=== PATIENT | male | born 1985 | race Caucasian/White ===

== ENCOUNTER 2016-10-06 21:24 | Emergency (ER) | payer OTHER ==
[2016-10-06] MEDS ORDERED: PROMETHAZINE HCL 25 MG in DEXTROSE 5 % IN WATER 50 ML IV ONE ×2 (21:47)
[2016-10-06] MEDS ORDERED: diphenhydrAMINE HCL 50 MG/ML VIAL IV ONE (21:47)
[2016-10-06] MEDS ORDERED: KETOROLAC TROMETHAMINE 30 MG/ML VIAL IV ONE (21:47)
[2016-10-06] MEDS ORDERED: KETOROLAC TROMETHAMINE 30 MG/ML VIAL ONE (21:53)
--- NOTE | 2016-10-06 21:57 | ERNOTE ---
<Radha Camarena - Last Filed: 10/06/16 21:47> Neuro HPI ER Record Date of Service: 10/06/16 Presenting Symptoms: other - seizure Time Seen by Provider: 10/06/16 21:40 Source: patient Exam Limitations: no limitations Immunizations: IMMUNIZATION HX Immunizations Up to Date Yes Allergies/Adverse Reactions: Allergies Allergy/AdvReac Type Severity Reaction Status Date / Time Sulfa (Sulfonamide Allergy Verified 10/06/16 21:35 Antibiotics) Home Medications: HOME MEDICATIONS levETIRAcetam [Keppra] 500 mg PO BID #60 tablet 10/06/16 [Last Taken Unknown] - History of Present Illness Narrative: Pt. comes in with c/o two seizures hours apart, pt. states unknown time period. Pt. has a hx of seizures and denies using his medications for years because he "cannot afford it" Pt. states that he has a headache but denies any vision changes, SOB, CP, NVD, fever, recent illness or injury, Pt. denies any injury of falling but states that he is weak after the last seizure. After the first seizure occurred at work today he went home and had a seizure at home and then was brought to the ER. Review of Systems - Review of Systems Constitutional: Present: weakness, fatigue. Absent: recent illness, fever, chills, malaise EYE: Present: no symptoms reported ENT: Present: no symptoms reported Respiratory: Present: no symptoms reported. Absent: shortness of breath, cough , wheezing Cardiology: Present: no symptoms reported. Absent: chest pain, palpitations, edema Gastrointestinal/Abdominal: Present: no symptoms reported. Absent: nausea, vomiting, diarrhea Genitourinary: Present: no symptoms reported Musculoskeletal: Present: no symptoms reported. Absent: back pain, joint pain Skin: Present: no symptoms reported. Absent: rash, change in hair/nails Neurological: Present: no symptoms reported. Absent: headache, dizziness/light- headedness, numbness, tingling All Other Systems: All systems neg except as marked - Patient's Past Medical History Patient History - Medical: Seizures Patient History - Cardiac/Respiratory: No pertinent hx Patient History - Cancer: No Hx of Cancer Patient History - Surgical Procedures: No surgical history - Social History Living Situations: home Smoking Status: Current every day smoker Patient requests Smoking Cessation Consult: No Initiate information on Smoking Cessation: No Alcohol Use: none Drug Use: none - Immunizations Immunizations Up to Date: Yes Physical Exam - Physical Exam General Appearance: Present: wd/wn, alert, no apparent distress Eye Exam: Normal inspection: bilateral, PERRL: bilateral, EOMI: bilateral Ears, Nose, Throat: Present: normal ENT inspection, normal pharynx Neck: Present: normal inspection, nontender. Absent: lymphadenopathy (R), lymphadenopathy (L) Respiratory: Present: no respiratory distress, normal breath sounds, no accessory muscle use, chest nontender, lungs clear. 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 Absent: pallor, skin rash Bowdon Coma Scale - Assess Eye Opening: Spontaneous Motor: Obeys Commands Verbal: Oriented - Total Coma Scale Total: 15 ED Progress - Vital Signs Patient's Vital Signs:: I have reviewed the patient's vital signs. Vital Signs: Vital Signs 10/06/16 10/06/16 21:28 21:30 Temperature 36.9 C Pulse Rate 68 78 Respiratory 16 Rate Blood Pressure 116/78 O2 Sat by Pulse 98 Oximetry - Progress/Reassessment Chief Complaint: Seizure Activity - Transfer of Care Physician Sign Out: Radha Camarena Receiving Physician: Minnie Thomas Pending Results: Labs Expected Disposition: Discharge Departure Clinical Impression: Seizure disorder - Departure Disposition: Home self-care Condition: Good Instructions: Seizure, Adult, [id number] Additional Instructions: call the neurology office for follow up Referrals: Calderon Weaver MD [Consulting Physician] - Prescriptions: levETIRAcetam [Keppra] 500 mg PO BID #60 tablet <Minnie Thomas - Last Filed: 10/06/16 23:14> Neuro HPI ER Record Immunizations: IMMUNIZATION HX Immunizations Up to Date Yes ED Progress - Results and Orders Patient's Lab Results:: I have reviewed the patient's lab results. - Vital Signs Patient's Vital Signs:: I have reviewed the patient's vital signs. Vital Signs: Vital Signs 10/06/16 10/06/16 10/06/16 21:28 21:30 21:58 Temperature 36.9 C Pulse Rate 68 78 68 Respiratory 16 14 Rate Blood Pressure 116/78 127/73 O2 Sat by Pulse 98 95 Oximetry 10/06/16 10/06/16 22:17 22:50 Temperature 36.7 C Pulse Rate 64 65 Respiratory 15 13 Rate Blood Pressure 134/83 127/77 O2 Sat by Pulse 95 93 Oximetry - Progress/Reassessment Progress Note-Subjective: 10/06/16 23:12 Patient comfortable, no seizures, patient was off medications as he could not afford them printed out coupon for romeo , gave follow up information for neurology
--- OUTSIDE RECORDS SUMMARY | 2016-10-06 22:02 | XMS REPORT | CCD ---
:1985 Author Name MAURICIO BOB Floridalma Address [address] Unavailable [place], [place] [id number] Care Team Providers Name Role Phone EFE MATA Attending Physician Unavailable EFE MATA Er Physician 1 Unavailable Vital Signs Vital Sign Value Unit Weight Measured 165 lbs Height 72 in BMI (Body Mass Index) 22.38 kg/m^2 BSA (Body Surface Area) 1.95 m^2 Allergies Allergy Code Allergy Type Reaction Status SULFA (sulfonamide) 0 Drug allergy (disorder) Active Procedures Unknown. History of Immunizations Unknown. Problems Unknown. Results RAPID URINE DRUG SCREEN Test Name Code Test Result Test Units Test Date/Time CANNABINOIDS (THC) NEGATIVE N/A 08/06/2013 22:10 OPIATES NEGATIVE N/A 08/06/2013 22:10 AMPHETAMINES NEGATIVE N/A 08/06/2013 22:10 COCAINE NEGATIVE N/A 08/06/2013 22:10 TRICYCLIC ANTIDEPRES NEGATIVE N/A 08/06/2013 22:10 BARBITURATES NEGATIVE N/A 08/06/2013 22:10 METHADONE NEGATIVE N/A 08/06/2013 22:10 BENZODIAZEPINES NEGATIVE N/A 08/06/2013 22:10 PROPOXYPHENE NEGATIVE N/A 08/06/2013 22:10 METHAMPHETAMINE NEGATIVE N/A 08/06/2013 22:10 Medications Unknown. Medications Administered Unknown. Encounters Encounter Diagnosis Diagnosis Code Start Date HYPERVENTILATION 51717 08/06/2013 Social History Smoking Status Code Start Date End Date Current every day smoker [id number] Patient Decision Aids Unknown. Instructions You were admitted to [facility] on 08/06/2013 with a principle diagnosis of HYPERVENTILATION. You were discharged from [facility] on 08/06/2013. Should you have any questions prior to discharge, please contact a member of your healthcare team. If you have left the hospital and have any questions, please contact your primary care physician. Chief Complaint and Reason For Visit Chief Complaint Date of Onset ALLERGIC REACTION Function Status Unknown. Plan of Care Unknown. Referral/Transition of Care Unknown.
--- OUTSIDE RECORDS SUMMARY | 2016-10-06 22:02 | XMS REPORT | CCD ---
:1985 Author Name ZULLY CALDERON Address [address] Unavailable [place], [place] [id number] Care Team Providers Name Role Phone RED PADILLA Attending Physician Unavailable Vital Signs Unknown or Not Available. Allergies Allergy Code Allergy Type Reaction Status SULFA (sulfonamide) 0 Drug allergy Active Procedures Procedure Code Procedure Type Date TSH 66209962 SNOMED CT 10/13/2015 LIPID [address]EL [id number] SNOMED [address] 10/13/2015 History of Immunizations Unknown or Not Available. Problems Unknown or Not Available. Results GLUCOSE, SERUM OR PLASMA - Collect Date/Time: 10/13/2015 13:51 Test Name Code Test Result Test Units Test Ref Range GLUCOSE 81 mg/dL L=74 H=106 LIPID PANEL - Collect Date/Time: 10/13/2015 13:51 Test Name Code Test Result Test Units Test Ref Range CHOLESTEROL 2093-3 183 mg/dL L=0 H=200 TRIGLYCERIDES 2571-8 102 mg/dL L=0 H=200 HDL 2085-9 39 mg/dL L=40 H=60 LDL 2089-1 124 mg/dL L=0 H=160 CHOL/HDL 9830-1 4.7 L=0.0 H=6.7 TSH - Collect Date/Time: 10/13/2015 13:51 Test Name Code Test Result Test Units Test Ref Range TSH 3016-3 1.531 uIU/ml L=0.360 H=3.740 Active Medications Unknown or Not Available. Medications Administered During Visit Unknown or Not Available. Encounters Encounter Diagnosis Diagnosis Code Start Date Adult health examination [id number] 10/13/2015 Social History Smoking Status Code Start Date End Date Current every day smoker [id number] 04/18/2003 Patient Decision Aids Unknown or Not Available. Discharge Instructions You were admitted to [facility] on 10/13/2015 13:44 with a principal diagnosis of Encounter for general adult medical examination without abnormal findings You had the following tests done:GLUCOSE, SERUM OR PLASMALIPID PANELTSH You were discharged from [facility] on 10/13/2015 13:44 Should you have any questions prior to discharge, please contact a member of your healthcare team. If you have left the hospital and have any questions, please contact your primary care physician. Chief Complaint and Reason For Visit Unknown or Not Available. Function Status Unknown or Not Available. Plan of Care Unknown or Not Available. Referral/Transition of Care Unknown or Not Available.
[2016-10-06] MEDS ORDERED: diphenhydrAMINE HCL 50 MG/ML VIAL ONE (22:09)
[2016-10-06 22:15] LABS: Hematocrit 39.3 % (42.0-52.0); Hemoglobin 13.1 gm/dL (13.5-18.0); Mean Corpuscular Hemoglobin 30.3 pg (27-31); Mean Corpuscular Hgb Conc 33.3 g/dl (32-36); Mean Platelet Volume 9.7 fl (6.0-9.5); Neutrophil # 2.6 K/mm3 (1.3-6.0); Neutrophil % 39.5 % (42-75.0); Platelet Count 233 K/mm3 (150-450); Red Blood Count 4.32 M/mm3 (4.7-6.0); Red Cell Distribution Width 12.2 % (11.5-14.0); White Blood Count 6.5 K/mm3 (4.0-10.5)
[2016-10-06 22:20] LABS: Urine Bilirubin Negative (NEGATIVE); Urine Ketone Negative (NEGATIVE); Urine Nitrite Negative (NEGATIVE); Urine Protein Negative (NEGATIVE); Urine Specific Gravity 1.025 SP.GR. (1.005-1.030); Urine Urobilinogen Normal (NORMAL)
[2016-10-06 22:29] LABS: ALT 18 U/L (19-67); AST 14 U/L (0-48); Albumin * 3.9 gm/dl (3.4-5.0); Alkaline Phosphatase * 85 U/L (50-170); BUN/Creatinine Ratio 8.7 (9.0-21.6); Bilirubin, Total 0.2 mg/dL (0.0-1.1); Blood Urea Nitrogen 9 mg/dL (6-23); Ca. Corrected For Albumin 8.7 mg/dL (8.4-10.2); Calcium * 8.9 mg/dL (7.9-10.9); Chloride 105 mmol/L (97-106); Glucose * 91 mg/dL (70-110); Potassium 3.9 mmol/L (3.4-4.6); Sodium 141 mmol/L (132-142)
[2016-10-06 22:33] LABS: Cocaine Ur Negative (NEGATIVE); Urine Barbiturate Negative (NEGATIVE); Urine Benzodiazepines Negative (NEGATIVE); Urine Opiates Negative (NEGATIVE); Urine PCP Negative (NEGATIVE); Urine THC Negative (NEGATIVE)
[2016-10-06 22:34] LABS: Urine Appearance Clear; Urine Bacteria 1+; Urine Blood 5 /ul (NEGATIVE); Urine Color Yellow; Urine RBC 0-5 /hpf (0-5); Urine WBC 0-5 /hpf (0-5)
[2016-10-06 22:35] LABS: Urine Mucus Few - 1+; Urine Sperm TRACE
[2016-10-06 22:37] LABS: Anion Gap 11.3 mmol/L (6.8-13.8); Carbon Dioxide 28.6 mmol/L (24-32.6)
[2016-10-07 00:26] VITALS: BP 112/73
== END 2016-10-06 23:32 | disposition home or self-care (01) ==
LOC: ER 21:24
DX: R56.9 Unspecified convulsions (principal); F17.210 Nicotine dependence, cigarettes, uncomplicated
CPT/HCPCS: 36415; 80053; 80307; 81001; 85025; 96374; 96375; 99284; G0481

== ENCOUNTER 2016-12-13 21:41 | Emergency (ER) | payer OTHER ==
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
[2016-12-13 22:35] LABS: Urine Bilirubin Negative (NEGATIVE); Urine Ketone Negative (NEGATIVE); Urine Nitrite Negative (NEGATIVE); Urine Protein Negative (NEGATIVE); Urine Specific Gravity <=1.005 SP.GR. (1.005-1.030); Urine Urobilinogen Normal (NORMAL); Urine pH 6.5 pH (5.0-7.0)
[2016-12-13 22:46] LABS: Urine Appearance Clear; Urine Bacteria TRACE; Urine Blood 5 /ul (NEGATIVE); Urine Color Yellow; Urine RBC None Seen /hpf (0-5); Urine WBC None Seen /hpf (0-5)
[2016-12-13 22:48] LABS: Cocaine Ur Negative (NEGATIVE); Urine Barbiturate Negative (NEGATIVE); Urine Benzodiazepines Negative (NEGATIVE); Urine Opiates Negative (NEGATIVE); Urine PCP Negative (NEGATIVE); Urine THC Negative (NEGATIVE)
[2016-12-13] MEDS ORDERED: LORazepam 2 MG/ML DISP.SYRIN IM ONE (22:53)
[2016-12-13 23:03] LABS: Hematocrit 46.3 % (42.0-52.0); Mean Cell Volume 87.9 fl (78-100); Mean Corpuscular Hemoglobin 30.4 pg (27-31); Mean Corpuscular Hgb Conc 34.6 g/dl (32-36); Neutrophil # 2.5 K/mm3 (1.3-6.0); Neutrophil % 40.6 % (42-75.0); Platelet Count 243 K/mm3 (150-450); Red Blood Count 5.27 M/mm3 (4.7-6.0); White Blood Count 6.1 K/mm3 (4.0-10.5)
[2016-12-13] MEDS ORDERED: LORazepam 2 MG/ML DISP.SYRIN ONE (23:04)
[2016-12-13 23:19] LABS: ALT 15 U/L (19-67); AST 15 U/L (0-48); Albumin * 4.8 gm/dl (3.4-5.0); Alkaline Phosphatase * 94 U/L (50-170); Anion Gap 15.9 mmol/L (6.8-13.8); BUN/Creatinine Ratio 6.6 (9.0-21.6); Bilirubin, Total 0.4 mg/dL (0.0-1.1); Blood Urea Nitrogen 6 mg/dL (6-23); Ca. Corrected For Albumin 7.9 mg/dL (8.4-10.2); Calcium * 8.9 mg/dL (7.9-10.9); Carbon Dioxide 26.7 mmol/L (24-32.6); Chloride 105 mmol/L (97-106); Glucose * 80 mg/dL (70-110); Potassium 3.6 mmol/L (3.4-4.6); Salicylate 3.7 mg/dL (2.8-20.0); Sodium 144 mmol/L (132-142); TSH * 4.742 uIU/mL (0.358-3.74); Total Protein 8.2 gm/dL (6.2-8.2)
[2016-12-13] MEDS ORDERED: NICOTINE 21 MG PATC TD ONE (23:20)
[2016-12-13] MEDS ORDERED: NICOTINE 21 MG PATC TD SCH (23:30)
[2016-12-14] MEDS ORDERED: ZIPRASIDONE MESYLATE 20 MG VIAL IM ONE (00:11)
[2016-12-14 09:10] VITALS: BP 123/70
[2016-12-14] MEDS ORDERED: LORazepam 1 MG TABLET PO ONE (10:46)
[2016-12-14] MEDS ORDERED: LORazepam 1 MG TABLET ONE (10:47)
[2016-12-14] MEDS ORDERED: lamoTRIgine 100 MG TABLET PO SCH (12:45)
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
--- NOTE | 2016-12-14 13:05 | CONS ---
HPI - History of Present Illness Allergies/Adverse Reactions: Allergies Sulfa (Sulfonamide Antibiotics) Allergy (Verified 10/06/16 21:35) - Patient's Past Medical History Patient History - Medical: Other Patient History - Cardiac/Respiratory: No pertinent hx Patient History - Cancer: No Hx of Cancer Patient History - Surgical Procedures: No surgical history - Social History Living Situations: home Abuse History: No History of abuse Psych History: Hx of Anxiety, Hx of Depression, Hx of Suicide Attempt Smoking Status: Current every day smoker Patient requests Smoking Cessation Consult: No Initiate information on Smoking Cessation: No Alcohol Use: none Drug Use: none - Immunizations Immunizations Up to Date: Yes Hx Pneumococcal Vaccination: No History of Influenza Vaccine: No Medications - Medications Current Medications: Current Medications Lamotrigine (Lamictal) 25 mg PO ONCE PILAR Stop: 12/14/16 13:45 Last Admin: 12/14/16 13:00 Dose: 25 mg Nicotine (Nicoderm) 21 mg TD Q24H PILAR Stop: 01/12/17 23:31 Last Admin: 12/13/16 23:27 Dose: 21 mg Physical Examination - Exam Vital Signs: Vital Signs - Last Taken Temp 36.9 C 12/13/16 21:45 Pulse 81 12/14/16 09:09 Resp 12 12/14/16 09:09 BP 123/70 12/14/16 09:09 Pulse Ox 99 12/14/16 09:09 O2 Oxygen Delivery Method Room Air - Results and Findings: Lab/Microbiology results last 24 hrs: Abnormal/Pending Laboratory Last 24 HRS 12/13/16 12/13/16 12/13/16 22:40 22:40 22:21 MPV 10.0 H Neutrophils % 40.6 L Lymphocytes % 51.5 H Sodium 144 H Plasma Sodium 144 H Anion Gap 15.9 H BUN/Creatinine Ratio 6.6 L Calcium Adj for Albumin 7.9 L ALT 15 L TSH 4.742 H Urine Blood 5 H Acetaminophen Less than 0.2 L Ethyl Alcohol 96.0 H - Assessments/Findings (1) Suicidal behavior with attempted self-injury Problem: Acute (2) Seizure disorder Problem: Acute
[2016-12-14] MEDS ORDERED: NICOTINE 21 MG PATC TD ONE (14:18)
[2016-12-14] MEDS ORDERED: NICOTINE 21 MG PATC TD SCH (14:30)
== END 2016-12-14 17:00 | disposition home or self-care (01) ==
LOC: ER 21:41
DX: F07.81 Postconcussional syndrome (principal)
CPT/HCPCS: 36415; 80053; 80307; 81001; 84443; 85025; 93005; 96372; 99285; G0480; G0481

== ENCOUNTER 2017-02-16 13:14 | Emergency (ER) | payer OTHER ==
[2017-02-16 13:25] VITALS: BP 114/67
--- NOTE | 2017-02-16 13:44 | ERNOTE ---
Lower Extremity HPI - Narrative Date of Service: 02/16/17 - General Time Seen by Provider: 02/16/17 13:33 Source: patient Exam Limitations: no limitations - Immun/Allergies/Home Medications Immunizations: IMMUNIZATION HX Immunizations Up to Date No History of Influenza Vaccine No Hx Pneumococcal Vaccination No Allergies/Adverse Reactions: Allergies Allergy/AdvReac Type Severity Reaction Status Date / Time Sulfa (Sulfonamide Allergy Verified 02/16/17 13:25 Antibiotics) Home Medications: HOME MEDICATIONS levETIRAcetam [Keppra] 500 mg PO BID #60 tablet 10/06/16 [Last Taken Unknown] lamoTRIgine [Lamictal] 25 mg PO BID #30 tablet 12/14/16 [Last Taken Unknown] risperiDONE [Risperdal] 2 mg PO HS #30 tablet 12/14/16 [Last Taken Unknown] Permethrin [Elimite 5% Cream] 1 appl TP ONCE 1 Days #1 tube 02/16/17 [Last Taken Unknown] - History of Present Illness Narrative: This is a patient that presents to the emergency room complaining of itching in both anterior and medial thighs and anterior belly scan. Since states that he also itches between his fingers and this sensation of pruritus is worse at nighttime. Patient states this has been going on for 1 day. He is not aware of anyone else in his household but has this. He denies any fevers chills he has absolutely no focal neurological deficits no weakness of the lower extremities no numbness or tingling whatsoever. He does state "my legs are on fire" especially after he scratches his legs. Review of Systems - Review of Systems Constitutional: Present: no symptoms reported EYE: Present: no symptoms reported ENT: Present: no symptoms reported Respiratory: Present: no symptoms reported Cardiology: Present: no symptoms reported Gastrointestinal/Abdominal: Present: no symptoms reported Genitourinary: Present: no symptoms reported Musculoskeletal: Present: no symptoms reported Skin: Present: other - rash on anterior belly medial and anterior thighs and both hands on the dorsal aspect in the intertriginous regions. - Patient's Past Medical History Patient History - Medical: Other Patient History - Cardiac/Respiratory: No pertinent hx Patient History - Cancer: No Hx of Cancer Patient History - Surgical Procedures: No surgical history - Social History Living Situations: home Abuse History: No History of abuse Psych History: Hx of Anxiety, Hx of Depression, Hx of Suicide Attempt Smoking Status: Current every day smoker Alcohol Use: none Drug Use: none - Immunizations Immunizations Up to Date: No Hx Pneumococcal Vaccination: No History of Influenza Vaccine: No Physical Exam - Physical Exam General Appearance: Present: wd/wn, alert, no apparent distress Head Exam: Present: normal inspection, no evidence of injury Respiratory: Present: no respiratory distress, normal breath sounds, no accessory muscle use, chest nontender, lungs clear Cardiovascular/Chest: Present: regular rate, rhythm, no murmur, normal peripheral pulses Skin Exam: Present: other - this patient has classic rash of scabies in the intertriginous regions on the dorsal aspect of both hands on his anterior belly region in the medial thigh areas and anterior thigh areas despite this examiner telling that patient not to scratch he actively is scratching the lesions with long fingernails with dirt underneath. ED Progress - Vital Signs Patient's Vital Signs:: I have reviewed the patient's vital signs. Vital Signs: Vital Signs 02/16/17 13:21 Temperature 36.8 C Pulse Rate 83 Respiratory 16 Rate Blood Pressure 114/67 O2 Sat by Pulse 98 Oximetry - Progress/Reassessment Chief Complaint: Lower Extremity Pain/ Injury Plan - Plan Plan: This patient in my opinion has classic scabies infestation and he will be treated appropriately. Departure Clinical Impression: Scabies - Departure Disposition: Home self-care Condition: Good Instructions: Scabies, Adult Prescriptions: Permethrin [Elimite 5% Cream] 1 appl TP ONCE 1 Days #1 tube
== END 2017-02-16 13:45 | disposition home or self-care (01) ==
LOC: ER 13:14
DX: B86 Scabies (principal); F17.200 Nicotine dependence, unspecified, uncomplicated

== ENCOUNTER 2017-03-04 13:52 | Emergency (ER) | payer OTHER ==
--- NOTE | 2017-03-04 15:35 | ERNOTE ---
Neuro HPI ER Record Date of Service: 03/04/17 Presenting Symptoms: other - seizure Time Seen by Provider: 03/04/17 14:24 Source: patient Exam Limitations: no limitations Immunizations: IMMUNIZATION HX Immunizations Up to Date No History of Influenza Vaccine No Hx Pneumococcal Vaccination No Allergies/Adverse Reactions: Allergies Allergy/AdvReac Type Severity Reaction Status Date / Time Sulfa (Sulfonamide Allergy Verified 03/04/17 13:57 Antibiotics) Home Medications: HOME MEDICATIONS levETIRAcetam [Keppra] 500 mg PO BID #60 tablet 10/06/16 [Last Taken Unknown] lamoTRIgine [Lamictal] 25 mg PO BID #30 tablet 12/14/16 [Last Taken Unknown] risperiDONE [Risperdal] 2 mg PO HS #30 tablet 12/14/16 [Last Taken Unknown] - History of Present Illness Narrative: Patient presents to the ED for a seizure. He relates that he feels like he does after a seizure. Takes Keppra, had not taken his dose today. Friend here relates he had whole body shaking. he states this is what he normally has. Not sure of the name of his Neurologist. Last seizure was approx 4 weeks ago. He denies other recent illnesses. No CP or SOB> Diffuse body aches, which is normal for hiim after a seizure. States there is nothign different about this than normal. No fever. Deneis acute focal N/T/W. No loss of bowel or bladder control. - Character of Deficits Additional Deficits: Absent: vision problems Baseline Cognition: Present: alert, oriented x 4 Associated Symptoms: Denies: fever/chills, chest pain, headache, altered mental status Prior Treament: Denies: recently seen Review of Systems - Review of Systems Constitutional: Absent: fever EYE: Absent: vision changes ENT: Absent: sore throat Respiratory: Absent: shortness of breath Cardiology: Absent: chest pain Gastrointestinal/Abdominal: Absent: abdominal pain Genitourinary: Absent: dysuria Musculoskeletal: Present: other - denies focal pain Skin: Absent: rash Neurological: Present: other - no acute focal weakness. Hx of seizures - Patient's Past Medical History Patient History - Medical: Other Patient History - Cardiac/Respiratory: No pertinent hx Patient History - Cancer: No Hx of Cancer Patient History - Surgical Procedures: No surgical history - Social History Living Situations: home Abuse History: No History of abuse Psych History: Hx of Anxiety, Hx of Depression, Hx of Suicide Attempt - Immunizations Immunizations Up to Date: No Hx Pneumococcal Vaccination: No History of Influenza Vaccine: No Physical Exam - Physical Exam General Appearance: Present: alert, no apparent distress Head Exam: Present: normal inspection, no evidence of injury Eye Exam: Normal inspection: bilateral, PERRL: bilateral Ears, Nose, Throat: Present: normal ENT inspection Neck: Present: normal inspection, nontender. Absent: tender posterior midline Respiratory: Present: no respiratory distress, normal breath sounds, no accessory muscle use, lungs clear Cardiovascular/Chest: Present: regular rate, rhythm, normal peripheral pulses Gastrointestinal/Abdominal: Present: normal bowel sounds, nontender, nondistended, soft Back Exam: Present: normal range of motion Extremity Exam: Present: normal inspection, other - no deformity Neurological Exam: Present: alert, normal mood/affect, no motor/sensory deficits , other - No evidence of acute unilateral focal motor or sensory deficit. Skin Exam: Present: normal color, warm/dry ED Progress - Results and Orders Patient's Lab Results:: I have reviewed the patient's lab results. Results and Orders: I reviewed the accu check obtained (Lab) - Vital Signs Patient's Vital Signs:: I have reviewed the patient's vital signs. Vital Signs: Vital Signs 03/04/17 03/04/17 03/04/17 13:53 14:10 14:30 Temperature 36.7 C Pulse Rate 76 79 77 Respiratory 12 12 12 Rate Blood Pressure 124/71 121/77 113/65 O2 Sat by Pulse 96 96 97 Oximetry 03/04/17 14:58 Temperature Pulse Rate 71 Respiratory 13 Rate Blood Pressure 111/69 O2 Sat by Pulse 97 Oximetry - Progress/Reassessment Chief Complaint: Seizure Activity Progress Note-Subjective: 03/04/17 15:31 Patient has a Hx of seizure. This is just like prior seizure. IV keppra given. he is requesting to go home and I feel this is reasonable as this is just like prior seizures. Last Sx one month ago. I discussed warning signs and reasons to return as well as the need for close f/u. Departure Clinical Impression: Seizure - Departure Disposition: Home self-care Condition: Stable Instructions: Epilepsy, [id number] Additional Instructions: No driving, bathing, swimming, climbing ladders, etc. Take your seizure medications as directed. Call your Neurologist in the morning to discuss your medications and further follow-up. Return for fever, vomiting, numbness, tingling, weakness or if your condition worsens or changes in any way.
[2017-03-04 15:49] VITALS: BP 118/75
== END 2017-03-04 15:56 | disposition home or self-care (01) ==
LOC: ER 13:52
DX: R56.9 Unspecified convulsions (principal)

== ENCOUNTER 2017-03-07 17:13 | Emergency (ER) | payer OTHER ==
--- NOTE | 2017-03-07 17:47 | ERNOTE ---
Neuro HPI ER Record Date of Service: 03/07/17 Presenting Symptoms: other - Seizure Time Seen by Provider: 03/07/17 17:33 Source: patient, RN notes reviewed, past records Exam Limitations: other - Poor historian Immunizations: IMMUNIZATION HX Immunizations Up to Date No History of Influenza Vaccine No Hx Pneumococcal Vaccination No Allergies/Adverse Reactions: Allergies Allergy/AdvReac Type Severity Reaction Status Date / Time Sulfa (Sulfonamide Allergy Verified 03/04/17 13:57 Antibiotics) Home Medications: HOME MEDICATIONS levETIRAcetam [Keppra] 500 mg PO BID #60 tablet 10/06/16 [Last Taken Unknown] lamoTRIgine [Lamictal] 25 mg PO BID #30 tablet 12/14/16 [Last Taken Unknown] risperiDONE [Risperdal] 2 mg PO HS #30 tablet 12/14/16 [Last Taken Unknown] - History of Present Illness Narrative: 31 year old male brought to the ED by EMS for a seizure that occurred while he was working. He report feeling lightheaded before the seizure. The activity only lasted about a minute. He was seen here 3 days ago for a seizure as well. He did not take his Keppra that day but reports taking it today. He states he also had a seizure yesterday or the day before. He sees neurology for follow up next week. Onset: gone now - Character of Deficits Baseline Cognition: Present: alert, oriented x 4 Baseline Gait: Present: walks w/o assistance Prior Treament: Reports: recently seen, treated by physician, similar symptoms before Review of Systems - Review of Systems Constitutional: Absent: recent illness, fever, chills EYE: Absent: eye pain, vision changes ENT: Present: no symptoms reported Respiratory: Absent: shortness of breath, cough Cardiology: Absent: chest pain, palpitations Gastrointestinal/Abdominal: Absent: nausea, vomiting, diarrhea, abdominal pain Genitourinary: Absent: dysuria, decreased urinary output Musculoskeletal: Absent: back pain, neck pain, joint pain Skin: Absent: rash, lesions, lumps Neurological: Present: seizure. Absent: headache, dizziness/light-headedness Endocrine: Present: no symptoms reported Hematologic/Lymphatic: Present: no symptoms reported Psych: Present: depressed - Patient's Past Medical History Patient History - Medical: Seizures, Other Patient History - Cardiac/Respiratory: No pertinent hx Patient History - Cancer: No Hx of Cancer Patient History - Surgical Procedures: No surgical history Patient History - Other: None - Social History Living Situations: home Abuse History: No History of abuse Psych History: Hx of Anxiety, Hx of Depression, Hx of Suicide Attempt Smoking Status: Current every day smoker Have you smoked in the past 12 months: Yes Do you dip or chew tobacco: No Alcohol Use: occasionally Drug Use: none - Immunizations Immunizations Up to Date: No Hx Pneumococcal Vaccination: No History of Influenza Vaccine: No Physical Exam - Physical Exam General Appearance: Present: wd/wn, no apparent distress, other - groggy appearing, disheveled, smells of feces Head Exam: Present: normal inspection, no evidence of injury Eye Exam: Normal inspection: bilateral, PERRL: bilateral Ears, Nose, Throat: Present: normal ENT inspection, normal pharynx Neck: Present: normal inspection, nontender, supple Respiratory: Present: no respiratory distress, normal breath sounds, no accessory muscle use, lungs clear Cardiovascular/Chest: Present: regular rate, rhythm, no murmur Gastrointestinal/Abdominal: Present: nontender, nondistended, soft Back Exam: Present: normal inspection, no vertebral tenderness Extremity Exam: Present: normal inspection, normal range of motion Neurological Exam: Present: oriented, no motor/sensory deficits, other - depressed appearing. Absent: normal mood/affect Skin Exam: Present: normal color, warm/dry Jama Coma Scale - Assess Eye Opening: Spontaneous Motor: Obeys Commands Verbal: Oriented - Total Coma Scale Total: 15 ED Progress - Results and Orders Patient's Lab Results:: I have reviewed the patient's lab results. - Vital Signs Patient's Vital Signs:: I have reviewed the patient's vital signs. Vital Signs: Vital Signs 03/07/17 17:15 Temperature 36.4 C L Pulse Rate 74 Respiratory 16 Rate Blood Pressure 119/72 O2 Sat by Pulse 98 Oximetry - Progress/Reassessment Chief Complaint: Seizure Activity Progress:: Improved Plan - Plan Plan: Labs are unremarkable aside from positive UDS for THC. Patient informed that the combination of cannabis and Keppra can cause seizures. Work excuse given for today. Departure Clinical Impression: Seizure - Departure Disposition: Home Follow Up Needed Condition: Stable Instructions: Cannabis Use Disorder, Form - Excuse from Work, School, or Physical Activity, Seizure, Adult, [id number] Additional Instructions: Stop using marijuana Take your medications as directed See your neurologist as scheduled
[2017-03-07 17:58] LABS: Urine Bilirubin Negative (NEGATIVE); Urine Blood Negative /ul (NEGATIVE); Urine Ketone Negative (NEGATIVE); Urine Nitrite Negative (NEGATIVE); Urine Protein Negative (NEGATIVE); Urine Specific Gravity 1.015 SP.GR. (1.005-1.030); Urine Urobilinogen Normal (NORMAL)
[2017-03-07 18:05] LABS: Hematocrit 39.5 % (42.0-52.0); Hemoglobin 13.8 gm/dL (13.5-18.0); Mean Cell Volume 89.6 fl (78-100); Mean Corpuscular Hemoglobin 31.3 pg (27-31); Mean Corpuscular Hgb Conc 34.9 g/dl (32-36); Mean Platelet Volume 9.3 fl (6.0-9.5); Neutrophil # 4.3 K/mm3 (1.3-6.0); Neutrophil % 54.9 % (42-75.0); Platelet Count 215 K/mm3 (150-450); Red Blood Count 4.41 M/mm3 (4.7-6.0); Red Cell Distribution Width 12.2 % (11.5-14.0); White Blood Count 7.8 K/mm3 (4.0-10.5)
[2017-03-07 18:10] LABS: Cocaine Ur Negative (NEGATIVE); Urine Barbiturate Negative (NEGATIVE); Urine Benzodiazepines Negative (NEGATIVE); Urine Opiates Negative (NEGATIVE); Urine PCP Negative (NEGATIVE)
[2017-03-07 18:11] LABS: Urine THC Positive (NEGATIVE)
[2017-03-07 18:19] LABS: ALT 12 U/L (19-67); AST 19 U/L (0-48); Albumin * 3.7 gm/dl (3.4-5.0); Alkaline Phosphatase * 79 U/L (50-170); BUN/Creatinine Ratio 16.8 (9.0-21.6); Bilirubin, Total 0.3 mg/dL (0.0-1.1); Blood Urea Nitrogen 17 mg/dL (6-23); Ca. Corrected For Albumin 8.8 mg/dL (8.4-10.2); Calcium * 8.9 mg/dL (7.9-10.9); Carbon Dioxide 26.8 mmol/L (24-32.6); Chloride 103 mmol/L (97-106); Glucose * 103 mg/dL (70-110); Potassium 3.8 mmol/L (3.4-4.6); Sodium 139 mmol/L (132-142); Total Protein 6.8 gm/dL (6.2-8.2)
[2017-03-07 18:25] LABS: Urine Appearance Clear; Urine Bacteria 2+; Urine Color Yellow; Urine Other Crystal Few - 1+ /hpf; Urine RBC None Seen /hpf (0-5); Urine WBC None Seen /hpf (0-5)
[2017-03-07 18:27] VITALS: BP 128/78
[2017-03-07] MEDS ORDERED: ACETAMINOPHEN 500 MG TABLET PO ONE (18:27)
== END 2017-03-07 18:53 | disposition home or self-care (01) ==
LOC: ER 17:13
DX: R56.9 Unspecified convulsions (principal); F17.200 Nicotine dependence, unspecified, uncomplicated
CPT/HCPCS: 36415; 80053; 80307; 81001; 85025; 93005; 99282; G0481